=== PATIENT | female | born 1965 | race Caucasian/White ===

== ENCOUNTER 2023-10-08 11:50 | Inpatient (IN) | payer OTHER ==
[2023-10-08] MEDS ORDERED: FAMOTIDINE 20 MG/50 ML IVPB 20 MG/50 ML MG IVPB ONE (11:58)
[2023-10-08] MEDS ORDERED: ONDANSETRON 4 MG/2 ML VIAL ONE ×2 (11:58→15:41)
[2023-10-08] MEDS: SODIUM CHLORIDE 1,000 ML IV STA (11:58)
[2023-10-08] MEDS: ONDANSETRON 4 MG/2 ML VIAL IVPUSH ONE ×2 (11:59→15:35)
[2023-10-08] MEDS: FAMOTIDINE 20 MG/50 ML IVPB 20 MG/50 ML MG IVPB ONE (12:04)
[2023-10-08 12:17] LABS: HEMATOCRIT 47.4 % (32.4-45.2); HEMOGLOBIN 14.9 G/dL (10.7-15.3); MCH 26.4 pg (25.7-33.7); MCHC 31.4 g/dl (32.0-36.0); MEAN CELL VOLUME 84.4 fl (80-96); MEAN PLT VOLUME 10.4 fl (7.5-11.1); PLATELET COUNT 217.5 10^3/uL (134-434); RBC 5.62 10^6/uL (3.60-5.2); RDW 15.7 % (11.6-15.6); WHITE BLOOD COUNT 10.9 10^3/uL (4.0-10.8)
[2023-10-08 12:19] LABS: INR 1.06 (0.83-1.09); PROTHROMBIN TIME (PATIENT) 12.1 SEC (9.7-13.0)
[2023-10-08 12:20] LABS: PLATELET ESTIMATE ADEQUATE
[2023-10-08 12:27] LABS: ALBUMIN 4.3 g/dl (3.4-5.0); BILIRUBIN,TOTAL 0.4 mg/dl (0.2-1); CALCIUM 9.3 mg/dl (8.5-10.1); CREATININE 0.7 mg/dl (0.6-1.3); POTASSIUM 3.9 mmol/L (3.5-5.1); TOT PROT 6.9 g/dl (6.4-8.2)
[2023-10-08] MEDS: SODIUM CHLORIDE 1,000 ML IV SCH (15:35)
[2023-10-08] MEDS: morphine CARPU-JECT 4 MG/1 ML DISP.SYRIN IVPUSH ONE ×2 (15:40→19:29)
[2023-10-08] MEDS ORDERED: morphine SULFATE 4 MG/ML VIAL ONE ×2 (15:40→19:25)
[2023-10-08] MEDS ORDERED: cefTRIAXone SODIUM 1 GM VIAL ONE (15:41)
[2023-10-08] MEDS: CEFTRIAXONE 1 GM in DEXTROSE 5%-WATER - 100 ML IVPB ONE (15:45)
[2023-10-08 17:02] LABS: EPITHELIAL CELLS 0-5 /hpf
[2023-10-08] MEDS ORDERED: DOCUSATE SODIUM 100 MG CAPSULE (FP) PO PRN (21:03)
[2023-10-08] MEDS ORDERED: morphine SULFATE 4 MG/ML VIAL IVPUSH PRN (21:48)
[2023-10-09 01:48] VITALS: BMI 30.4
[2023-10-09] MEDS ORDERED: ONDANSETRON 4 MG/2 ML VIAL IVPUSH PRN ×2 (08:04→14:33)
[2023-10-09 08:09] LABS: POTASSIUM 4.1 mmol/L (3.5-5.1)
[2023-10-09 08:20] LABS: ALBUMIN 3.4 g/dl (3.4-5.0); CALCIUM 8.9 mg/dL (8.5-10.1)
[2023-10-09 08:21] LABS: MAGNESIUM 2.1 mg/dL (1.8-2.4)
[2023-10-09 08:23] LABS: CREATININE 0.8 mg/dL (0.55-1.3); PHOSPHOROUS 3.9 mg/dL (2.5-4.9)
[2023-10-09 08:25] LABS: BILIRUBIN,TOTAL 0.7 mg/dL (0.2-1); TOT PROT 6.7 g/dl (6.4-8.2)
[2023-10-09 08:32] LABS: BASO % 0.3 % (0-2.0); EOS % 0.1 % (0-4.5); HEMATOCRIT 42.2 % (32.4-45.2); HEMOGLOBIN 13.7 GM/dL (10.7-15.3); LYMPH % 20.8 % (8-40); MCH 27.3 pg (25.7-33.7); MCHC 32.4 g/dl (32.0-36.0); MEAN CELL VOLUME 84.2 fl (80-96); MEAN PLT VOLUME 10.3 fl (7.5-11.1); MONO % 7.6 % (3.8-10.2); NEUT % 71.2 % (42.8-82.8); PLATELET COUNT 181 10^3/uL (134-434); RDW 14.1 % (11.6-15.6); WHITE BLOOD COUNT 13.5 K/mm3 (4.0-10.0)
[2023-10-09] MEDS: CEFTRIAXONE 1 GM in DEXTROSE 5%-WATER - 50 ML IVPB SCH (10:20)
[2023-10-09] MEDS ORDERED: BUPIVACAINE HCL/PF 0.25% (2.5MG/ML) 10 ML VIAL ONE (11:22)
[2023-10-09] MEDS ORDERED: PROPOFOL 20 ML ONE ×2 (12:28→13:59)
[2023-10-09] MEDS ORDERED: SUCCINYLCHOLINE CHLORIDE 200 MG/10 ML SYRINGE ONE (12:29)
[2023-10-09] MEDS ORDERED: ROCURONIUM BROMIDE 50 MG/5 ML SYRINGE ONE (12:29)
[2023-10-09] MEDS ORDERED: MIDAZOLAM HCL 2 MG/2 ML SINGLE DOSE VIAL ONE (12:32)
[2023-10-09] MEDS ORDERED: FENTANYL CITRATE/PF 50 MCG/ML VIAL ONE ×3 (12:33→14:35)
[2023-10-09] MEDS ORDERED: DEXAMETHASONE SOD PHOSPHATE 4 MG/1 ML VIAL ONE (13:09)
[2023-10-09] MEDS ORDERED: KETOROLAC TROMETHAMINE 30 MG/1 ML VIAL ONE (13:09)
[2023-10-09] MEDS ORDERED: ONDANSETRON 4 MG/2 ML VIAL ONE (13:09)
[2023-10-09] MEDS ORDERED: PROMETHAZINE HCL 25 MG/1 ML VIAL IVPB PRN ×2 (13:27→14:33)
[2023-10-09] MEDS: BUPIVACAINE HCL/PF 2.5 MG/ML - 30 ML VIAL IJ ONE (13:44)
[2023-10-09] MEDS ORDERED: NEOSTIGMINE METHYLSULFATE 0.5 MG/1 ML - 10 ML MDV ONE (13:49)
[2023-10-09] MEDS ORDERED: DOCUSATE SODIUM 100 MG CAPSULE (FP) PO PRN (14:33)
[2023-10-09] MEDS ORDERED: oxyCODONE HCL 5 MG TABLET PO PRN (14:33)
[2023-10-09] MEDS: SODIUM CHLORIDE 1,000 ML IV SCH (16:07)
[2023-10-09] MEDS: LACTATED RINGERS SOLUTION 1,000 ML IV SCH ×2 (17:03→17:04)
[2023-10-09] MEDS: ACETAMINOPHEN 325 MG TABLET (FP) PO SCH (17:42)
[2023-10-09 18:22] VITALS: RESP 18
[2023-10-10 08:52] LABS: BASO % 0.2 % (0-2.0); HEMATOCRIT 38.5 % (32.4-45.2); HEMOGLOBIN 12.8 GM/dL (10.7-15.3); LYMPH % 23.2 % (8-40); MCH 27.5 pg (25.7-33.7); MCHC 33.3 g/dl (32.0-36.0); MEAN CELL VOLUME 82.5 fl (80-96); MEAN PLT VOLUME 9.7 fl (7.5-11.1); MONO % 9.3 % (3.8-10.2); NEUT % 67.3 % (42.8-82.8); PLATELET COUNT 179 10^3/uL (134-434); RBC 4.66 M/mm3 (3.60-5.2); RDW 14.4 % (11.6-15.6); WHITE BLOOD COUNT 12.7 K/mm3 (4.0-10.0)
[2023-10-10 09:06] LABS: POTASSIUM 3.8 mmol/L (3.5-5.1)
[2023-10-10 09:12] LABS: CALCIUM 8.8 mg/dL (8.5-10.1)
[2023-10-10 09:13] LABS: ALBUMIN 2.9 g/dl (3.4-5.0); BLOOD UREA NITROGEN 12.3 mg/dL (7-18)
[2023-10-10 09:16] LABS: CREATININE 0.6 mg/dL (0.55-1.3)
[2023-10-10 09:17] LABS: BILIRUBIN,TOTAL 0.6 mg/dL (0.2-1)
[2023-10-10 09:18] LABS: TOT PROT 5.8 g/dl (6.4-8.2)
[2023-10-10] MEDS: PANTOPRAZOLE 20 MG TABLET PO SCH (09:30)
[2023-10-10] MEDS: CEFTRIAXONE 1 GM in DEXTROSE 5%-WATER - 50 ML IVPB SCH (09:31)
[2023-10-10 11:38] VITALS: BP 158/89; PULSE 72; TEMP 98.3
== END 2023-10-10 13:20 | disposition home or self-care (01) | DRG 263 ==
LOC: FER 11:50 → J8W 10-09 00:15
PROVIDERS: ADMIT Surgery; ATTEND Nurse Practitioner Family
PROC: 0FT44ZZ Resection of Gallbladder, Percutaneous Endoscopic Approach (ICD-10-PCS; principal; 2023-10-09 10:23)
DX: K80.00 Calculus of gallbladder with acute cholecystitis without obstruction (principal); K66.0 Peritoneal adhesions (postprocedural) (postinfection); R74.01 Elevation of levels of liver transaminase levels; D72.829 Elevated white blood cell count, unspecified
CPT/HCPCS: 36415; 71045-TC-FY; 76705-TC; 80053; 81003; 81015; 83690; 83735; 84100; 84484; 85025; 85027; 85610; 86850; 86900; 86901; 87086; 88304-TC; 93005; 94760; 99285-25

== ENCOUNTER 2023-11-01 12:57 | Emergency (ER) | payer OTHER ==
[2023-11-01 13:24] VITALS: BP 135/68; PULSE 75; RESP 20; TEMP 98.4; BMI 29.0
[2023-11-01] MEDS ORDERED: ACETAMINOPHEN INJECTION 100 ML IVPB ONE (13:50)
[2023-11-01] MEDS: SODIUM CHLORIDE 500 ML IV STA (14:58)
[2023-11-01] MEDS: ACETAMINOPHEN 1000 MG/100 ML BAG IVPB ONE (14:58)
[2023-11-01 15:20] LABS: HEMATOCRIT 42.3 % (32.4-45.2); HEMOGLOBIN 13.7 G/dL (10.7-15.3); MCH 27.6 pg (25.7-33.7); MCHC 32.3 g/dl (32.0-36.0); MEAN CELL VOLUME 85.7 fl (80-96); PLATELET COUNT 265.6 10^3/uL (134-434); RBC 4.94 10^6/uL (3.60-5.2); RDW 14.8 % (11.6-15.6); WHITE BLOOD COUNT 8.5 10^3/uL (4.0-10.8)
[2023-11-01 15:21] LABS: ALBUMIN 4.2 g/dl (3.4-5.0); ALK PHOS 121 U/L (45-117); ANION GAP 7 mmol/L (4-13); BILIRUBIN,TOTAL 0.3 mg/dl (0.2-1); CALCIUM 9.3 mg/dl (8.5-10.1); CHLORIDE 103 mmol/L (98-107); CO2 29 mmol/L (21-32); CREATININE 0.6 mg/dl (0.6-1.3); GLUCOSE,RANDOM 84 mg/dl (74-106); MAGNESIUM 2.1 mg/dL (1.8-2.4); POTASSIUM 4.2 mmol/L (3.5-5.1); SGOT/AST 18 U/L (15-37); SGPT/ALT 17 U/L (7-52); SODIUM 139 mmol/L (136-145); TOT PROT 6.5 g/dl (6.4-8.2)
[2023-11-01 15:26] LABS: EPITHELIAL CELLS 0-5 /hpf
[2023-11-01 16:12] LABS: PLATELET ESTIMATE ADEQUATE
== END 2023-11-01 18:28 | disposition home or self-care (01) ==
LOC: FER 12:57
PROC: 3E033NZ Introduction of Analgesics, Hypnotics, Sedatives into Peripheral Vein, Percutaneous Approach (ICD-10-PCS; principal; 2023-11-01)
PROC: 3E0337Z Introduction of Electrolytic and Water Balance Substance into Peripheral Vein, Percutaneous Approach (ICD-10-PCS; 2023-11-01)
DX: K59.00 Constipation, unspecified (principal); R10.31 Right lower quadrant pain
CPT/HCPCS: 36415; 74177-TC; 80053; 81003; 81015; 83690; 83735; 85027; 96361; 96374; 99285-25; J0131; Q9967

== ENCOUNTER 2024-10-13 15:52 | Emergency (ER) | payer OTHER ==
[2024-10-13 16:11] VITALS: BP 132/66; PULSE 71; RESP 18; TEMP 98.8; BMI 29.5
[2024-10-13] MEDS ORDERED: ACETAMINOPHEN 500 MG TABLET (FP) ONE (16:19)
[2024-10-13] MEDS ORDERED: LIDOCAINE 5% TOPICAL PATCH ONE (16:20)
[2024-10-13] MEDS ORDERED: METHOCARBAMOL 500 MG TABLET ONE (16:20)
[2024-10-13] MEDS ORDERED: KETOROLAC TROMETHAMINE 30 MG/1 ML VIAL ONE (16:20)
[2024-10-13] MEDS: METHOCARBAMOL 500 MG TABLET PO ONE (16:27)
[2024-10-13] MEDS: KETOROLAC TROMETHAMINE 30 MG/1 ML VIAL IM ONE (16:27)
[2024-10-13] MEDS: LIDOCAINE 5% TOPICAL PATCH TP ONE (16:29)
[2024-10-13] MEDS: ACETAMINOPHEN 500 MG TABLET (FP) PO ONE (16:29)
[2024-10-13] MEDS ORDERED: predniSONE 20 MG TABLET (UD) ONE (17:58)
[2024-10-13] MEDS: predniSONE 20 MG TABLET (UD) PO ONE (18:03)
[2024-10-13] MEDS ORDERED: LIDOCAINE PATCH REMOVAL MC SCH (22:00)
== END 2024-10-13 20:21 | disposition home or self-care (01) ==
LOC: FER 15:52
PROC: 3E0233Z Introduction of Anti-inflammatory into Muscle, Percutaneous Approach (ICD-10-PCS; principal; 2024-10-13)
DX: M54.50 Low back pain, unspecified (principal); M79.662 Pain in left lower leg
CPT/HCPCS: 72100-TC-FY; 73502-TC-LT-FY; 99284-25